=== PATIENT | male | born 1965 | race Caucasian/White ===

== ENCOUNTER 2017-10-02 05:13 | Emergency (ER) | payer OTHER ==
[~2017-10-02] VITALS: Ht 175.3 cm; Wt 71.0 kg
[~2017-10-02 05:13] MED LIST: FLEXERIL5 MG PO; LIPITOR40 MG PO
[2017-10-02] MEDS ORDERED: MEDROL DOSEPAK4 MG PO (06:15)
[2017-10-02] MEDS ORDERED: VALIUM5 MG PO (06:15)
[2017-10-02 08:12] VITALS: BP 142/84
== END 2017-10-02 08:00 | disposition home or self-care (01) ==
LOC: EME 05:13
DX: M54.5 Low back pain (principal); G89.29 Other chronic pain
CPT/HCPCS: 99281; 99284; J1885; J2930; J7050

== ENCOUNTER 2018-01-04 06:30 | Emergency (ER) | payer OTHER ==
[~2018-01-04] VITALS: Ht 175.3 cm; Wt 68.2 kg
[~2018-01-04 06:30] MED LIST changes: +MEDROL DOSEPAK4 MG PO; +VALIUM5 MG PO
[2018-01-04] MEDS ORDERED: VALIUM5 MG PO (07:06)
[2018-01-04] MEDS ORDERED: ULTRAM50 MG PO (07:06)
[2018-01-04 08:39] VITALS: BP 127/87
== END 2018-01-04 08:41 | disposition home or self-care (01) ==
LOC: EME 06:30
DX: S39.012A Strain of muscle, fascia and tendon of lower back, initial encounter (principal); X50.9XXA Other and unspecified overexertion or strenuous movements or postures, initial encounter; E11.9 Type 2 diabetes mellitus without complications; I10 Essential (primary) hypertension
CPT/HCPCS: 99281; 99284; J3010